=== PATIENT | male | born 1970 | race Caucasian/White ===

== ENCOUNTER 2023-08-31 12:27 | Emergency (ER) | payer OTHER, SELFPAY ==
[2023-08-31 12:33] VITALS: BP 137/96
--- NOTE | 2023-08-31 12:45 | EDRN ---
Anson Ordaz PA in to see pt.
--- NOTE | 2023-08-31 12:46 | ED.GENMED ---
History of Present Illness
General
Chief Complaint: Throat Problem
Source: patient
Time Seen by Provider: 08/31/23 12:41
History of Present Illness
History of Present Illness:
53-year-old male with past medical history of hyperlipidemia presenting to the emergency department for evaluation of left-sided ear/facial pain that has been ongoing for about 1 month. Patient went to an urgent care and states that initially they
did not do much for him but when symptoms continued he went back to the urgent care and was given an antibiotic as well as recommended to follow-up with an ENT. Patient took the antibiotic for 10 days but did not have any relief with this. At the
ENT, patient was told that they did not see anything wrong but if that symptoms continued that they may want to get a CT scan for further evaluation. Patient states today he felt that the pain was a little bit worse which is why he decided to come
to the emergency department. Patient notes associated throat discomfort but states it does not feel as if he had a viral syndrome as this feels different. He also notes that the left side of his face/scalp is tender to the touch but denies any
rashes. Patient denies any recent fevers or illnesses. No known sick contacts or recent travel. Family history was noncontributory for any ENT or intracranial malignancy. social history was negative for tobacco use
Past History
Past History
ED Past Medical History: Hypercholesterolemia
ED Past Surgical History: None
Social History
Tobacco: Non-smoker
Alcohol: Occasional
Drug: None
Personal:
Living: with family
Review of Systems
Review of Systems
All Other Systems: ROS reviewed and negative except as documented in HPI and ROS
Phy Exam
Physical Exam
Physical Exam:
GENERAL: Alert , in no apparent distress
Head: Normocephalic atraumatic
EYE: conjunctiva clear, EOMI, pupils 4 mm bilateral
NECK: Supple, no significant adenopathy. No meningismus, no focal tenderness
ENT: o/p clr, no tonsillar edema or exudates, mmm. Fair dentition, left TM with a little erythema along the malleus but cone of light otherwise visualized, no effusions or increased air-fluid levels. Right TM within normal limits
CARDIAC: Regular rate and rhythm
LUNGS: Clear breath sounds bilaterally, no acute respiratory distress, no wheezes/rales/rhonchi
NEUROLOGICAL: Alert and oriented
SKIN: Warm and dry, skin intact. No rashes
MUSCULOSKELETAL: well perfused.
PSYCH: Normal and appropriate interaction.
Scores
Heart Failure Risk
Heart Failure Risk Score: Not Applicable
Heart Score for Chest Pain Patients
STEMI patient?: Not applicable
Withdrawal Assessment of Alcohol
Withdrawal Assessment Completed?: Not applicable
Course
Orders/Labs/Results
Orders:
Orders
08/31/23 12:46
CT Head W/o Iv Contrast Urgent
Comment:
Reason For Exam: left sided head/facial pain
08/31/23 13:08
Basic Metabolic Panel Urgent
CRP [C-Reactive Protein] Urgent
Complete Blood Count/With Diff Urgent
ESR [Erythrocyte Sed Rate] Urgent
08/31/23 14:05
Carbamazepine [Tegretol] 200 mg PO NOW STA
Abnormal Lab Results
08/31/23
13:08
MPV 11.6 H fL
(7.4-10.4)
08/31/23 13:08
08/31/23 13:08
Vital Signs
Initial and Last Documented VS:
Initial Vital Signs
Temp Pulse Resp BP Pulse Ox
98.1 F 60 18 137/96 100
08/31/23 12:33 08/31/23 12:33 08/31/23 12:33 08/31/23 12:33 08/31/23 12:33
Last Documented Vital Signs
Temp Pulse Resp BP Pulse Ox
98.1 F 71 16 132/89 98
08/31/23 12:33 08/31/23 13:05 08/31/23 13:05 08/31/23 13:05 08/31/23 13:05
MDM/Problems Addressed
Differential Diagnosis Includes:
TMJ, trigeminal neuralgia, giant cell arteritis, I have less concern for infectious etiology given duration of symptoms, malignancy, shingles also considered but again given duration of illness this is much less likely
MDM/Problems Addressed:
53-year-old male present emergency department for evaluation of some left-sided facial pain/ear pain x 1 month. Patient initially treated with Augmentin and completed a 10-day course however had no relief. Saw an ENT earlier this week but was told
everything looked okay. On my exam I do not appreciate any abnormalities outside of a very faint bit of erythema along the left TM but this does not appear to be acutely infected. Will obtain a CT scan as patient reports that this was ENTs next
potential course of action. Labs including ESR and CRP ordered. Reassessment following. Anticipate continued outpatient management.
*Radiology
Radiology exam reviewed: radiology read reviewed
*Pulse Oximetry
Patient hypoxic: no
*Critical Care Note
Total Time (30-74mins, 75-104mins- exclusive of procedures): Not Applicable
Patient Management
Escalation/DeEscalation of care consider admission/obs:
Patient's labs and CT are overall unremarkable. CT does not show any evidence for intracranial pathology. Based off of patient's presentation I am highly suspicious for trigeminal neuralgia. I discussed with patient that this is a fairly
difficult diagnosis to make especially in the emergency but that if he would like we can trial a medication to see if this would provide him with relief. Prescription for carbamazepine initiated. I provided the patient with information for a ENT
for a second opinion but also advised he may need to see neurology. Encouraged close follow-up with primary care provider. Aware of return precautions to the emergency department.
ED Attending Note
-
Portions of this chart may have been created with voice recognition software.� Occasional wrong word or��sound alike� substitutions may have occurred due to the inherent limitations of voice recognition software.
Discharge Plan
Departure
Patient Disposition: Home (Routine Discharge)
Date of Disposition: 08/31/23
Time of Disposition: 13:57
Patient with high blood pressure during this ER visit?: Yes
Discharge Problem:
Left-sided face pain
Instructions: Trigeminal neuralgia
Prescriptions:
New
carbamazepine 200 mg capsule, ER multiphase 12 hr
200 mg PO DAILY Qty: 21 0RF
Referrals:
Liam Jean MD [Active] - (ENT)
Mikhail Onofre MD [Family Provider] -
Interventions
Interventions:
*Risk Screen - Suicide Last Done: 08/31/23 13:01
*General Assessment Last Done: 08/31/23 13:01
*Neglect/Abuse Screening Last Done: 08/31/23 13:01
*ED COVID-19 Vaccine History Last Done: 08/31/23 13:01
ED-EENT Assessment Last Done: 08/31/23 13:02
ED- Pulmonary Assessment Last Done: 08/31/23 13:02
Discharge Date and Time
Print Language: KITTITIAN
[2023-08-31 13:00] VITALS: BMI 29.9
[2023-08-31 13:05] VITALS: BP 132/89
--- NOTE | 2023-08-31 13:10 | EDRN ---
Blood drawn and sent at this time.
[2023-08-31 13:18] LABS: % Basophils 0.6 % (0-2); % Eosinophils 2.7 % (0-6); % Immature Granulocytes 0.3 % (0-0.5); % Lymphocytes 39.6 % (20.5-51.1); % Monocytes 7.6 % (1.7-9.3); % Neutrophils 49.2 % (42.2-75.2); Absolute Eosinophils 0.2 10^3/uL (0-0.7); Absolute Lymphocytes 2.5 10^3/uL (1.2-3.4); Absolute Monocytes 0.5 10^3/uL (0.1-0.6); Absolute Neutrophils 3.1 10^3/uL (1.4-6.5); Hematocrit 45.7 % (39.0-52.0); Hemoglobin 15.2 g/dL (13.0-18.0); Mean Corp Hgb Conc. 33.3 g/dL (33.0-37.0); Mean Corpuscular Hgb 29.2 pg (27.0-31.0); Mean Corpuscular Volume 87.9 fL (80.0-94.0); Mean Platelet Volume 11.6 fL (7.4-10.4); Nucleated Red Blood Cells % 0 % (-); Platelet Count 162 10^3/uL (130-400); Red Cell Dist. Width 11.9 % (11.5-14.5); White Blood Cell Count 6.2 10^3/uL (4.8-10.8)
[2023-08-31 13:30] LABS: Blood Urea Nitrogen 20 mg/dl (9-20); Calcium 9.8 mg/dl (8.4-10.2); Carbon Dioxide 23 mmol/L (22-30); Chloride 106 mmol/L (98-107); Estimated Creatinine Clearance 80 ml/min; Glucose 90 mg/dl (70-99); Potassium 4.5 mmol/L (3.5-5.1); Sodium 140 mmol/L (135-145); eGFR > 60.00
[2023-08-31 13:32] LABS: C-Reactive Protein < 5.00 mg/L (0.0-10.00)
[2023-08-31 14:08] LABS: Erythrocyte Sed Rate 8 mm/hour (0-20)
[2023-08-31] MEDS: TEGRETOL 200 MG PO (14:18)
[2023-08-31 14:22] VITALS: BP 141/98
== END 2023-08-31 14:24 | disposition home or self-care (01) ==
LOC: EMR 12:27
PROVIDERS: Physician Assistant Medical; EMERGENCY PHYSICIAN Student in an Organized Health Care Education/Training Program; FAMILY PHYSICIAN Internal Medicine
DX: R51.9 Headache, unspecified (principal); E78.00 Pure hypercholesterolemia, unspecified
CPT/HCPCS: 99284; 70450; 80048; 85025; 85652; 86140